=== PATIENT | male | born 1995 | race African-American/Black ===

== ENCOUNTER 2024-04-21 14:57 | Emergency (ER) | payer SELFPAY ==
[2024-04-21] MEDS ORDERED: Lidocaine 1% PF 5 ML VIAL ONE ×3 (16:29→16:35)
[2024-04-21] MEDS ORDERED: Acetaminophen 325 MG TAB ONE (16:30)
[2024-04-21] MEDS ORDERED: Bacitracin 1 PK ONE (16:44)
== END 2024-04-21 16:45 | disposition home or self-care (01) ==
LOC: ERS 14:57
DX: L03.031 Cellulitis of right toe (principal)
CPT/HCPCS: 10060